=== PATIENT | female | born 1980 | race Caucasian/White ===

== ENCOUNTER 2016-10-01 02:29 | Inpatient (IN) | payer OTHER ==
[2016-10-01] VITALS (7 sets, daily range): BP systolic 95–126; BP diastolic 50–77; PULSE 86–106; RESP 16–23; Ht 165.1 cm; Wt 95.2 kg
[~2016-10-01] VITALS: Ht 165.1 cm; Wt 95.2 kg
[2016-10-01] MEDS ORDERED: morphine 4 MG/ML VIAL IV PRN (03:30)
[2016-10-01] MEDS ORDERED: ONDANSETRON 4 MG INJ IV ONE (03:30)
[2016-10-01] MEDS: DEXTROSE 5%-0.45% NACL 1,000 ML IV SCH ×3 (03:43→15:41)
[2016-10-01] MEDS ORDERED: ONDANSETRON INJ 8 MG in SOD CHLORIDE 0.9% 50 ML IV ONE (04:00)
[2016-10-01 06:32] LABS: ALBUMIN 4.1 g/dl (3.3-4.9); POTASSIUM 3.7 mmol/L (3.5-5.1)
[2016-10-01 06:34] LABS: CREATININE 0.59 mg/dl (0.44-1.00)
[2016-10-01 06:35] LABS: ALBUMIN/GLOBULIN RATIO 1.36; BILIRUBIN,INDIRECT 0.4 mg/dl (0-1.1); BILIRUBIN,TOTAL 0.4 mg/dl (0.2-1.3); CALCIUM 8.5 mg/dl (8.4-10.2); TOTAL PROTEIN 7.1 g/dl (6.1-8.1)
[2016-10-01 06:41] LABS: EOSINOPHILS % 0.2 % (0.0-7.0); HEMOGLOBIN 13.4 g/dl (12.0-16.0); LYMPHOCYTES # 0.9 10^3/ul (0.8-2.9); LYMPHOCYTES % 5.9 % (15.0-51.0); MEAN CORPUSCULAR HEMOGLOBIN 30.6 pg (29.0-33.0); MEAN CORPUSCULAR HGB CONC 35.2 g/dl (32.0-37.0); MEAN CORPUSCULAR VOLUME 86.9 fl (82.0-101.0); MEAN PLATELET VOLUME 9.2 fl (7.4-10.4); MONOCYTE # 0.9 10^3/ul (0.3-0.9); MONOCYTES % 6.5 % (0.0-11.0); NEUTROPHIL # 12.6 10^3/ul (1.6-7.5); NEUTROPHILS % 87.4 % (39.0-77.0); PLATELET COUNT 261 10^3/UL (140-440); RED BLOOD COUNT 4.37 10^6/ul (4.20-5.40); RED CELL DISTRIBUTION WIDTH 12.6 % (11.5-14.5); UNCORRECTED WBC 14.4 10^3/ul (4.8-10.8); WHITE BLOOD COUNT 14.4 10^3/ul (4.8-10.8)
[2016-10-01 06:57] LABS: CONDITION 1
--- NOTE | 2016-10-01 08:56 | HP ---
DATE OF ADMISSION: 10/01/2016 HISTORY: The patient is a 36-year-old female with a history of a herniated disk, who initially prese nted to an outside hospital with abdominal pain. An ultrasound of the abdomen was done which showed the finding of cholecystitis, and as such, the patient was to this hospital for further evaluation because of insurance reasons. Her liver enzymes and lipase at the outside hospital were within norm al limits. She denied any fever or chills, but reported some nausea. She denied any chest pain or shortness of breath. REVIEW OF SYSTEMS: A 12-point review of systems was performed and negative except as a mentioned in the HPI. PAST MEDICAL HISTORY: As per HPI. PAST SURGICAL HISTORY: Denies. SOCIAL HISTORY: Denies a history of alcohol or illicit drug use. ALLERGIES: NO KNOWN DRUG ALLERGIES. HOME MEDICATIONS: None. PHYSICAL EXAMINATION: VITAL SIGNS: Stable. GENERAL: In no acute distress, looks comfortable, answering questions appropriately, able to speak in full sentences. HEENT: No obvious head deformity. Pupils are reactive to light. Extraocular muscles are intact. CARDIOVASCULAR: Regular rate and rhythm. No extra sounds. LUNGS: Lung sounds clear. ABDOMEN: Soft. There is some tenderness to deep palpation in the right upper quadrant area, with n o guarding, no rebound tenderness, no rigidity. EXTREMITIES: No edema. NEUROLOGIC: No focal deficits. LABORATORY: WBC 14, otherwise CBC and CMP are within normal limits. IMAGING: Right upper quadrant ultrasound from the outside hospital shows cholelithiasis and gallbla dder wall thickening. IMPRESSION: 1. Cholelithiasis with cholecystitis. 2. Abdominal pain, secondary to above. PLAN: Will keep n.p.o. She will be placed on IV fluids. She will be provided pain medication and antiemetics as needed. Will place a surgery consult. Will either repeat an ultrasound or obtain a CT of her abdomen. Further workup and management per clinical course. Dictated By: MERLE REYES/YRN Conf#: [id number] DID#: [id number]
[2016-10-01] MEDS: FAMOTIDINE 20 MG INJ IV SCH ×2 (09:02→20:58)
[2016-10-01] MEDS: ONDANSETRON 4 MG INJ IV SCH ×3 (09:31→20:58)
[2016-10-01] MEDS: AMPICILLIN/SULB 3 GM/NS (PMX) 100 ML IVPB SCH ×3 (10:06→18:00)
--- NOTE | 2016-10-01 11:54 | RADRPT ---
PROCEDURE: MR Abdomen without contrast and MRCP. CLINICAL INDICATION: Right upper quadrant abdominal pain. TECHNIQUE: MRI abdomen in conjunction with MRCP was performed without the administration of intrav enous contrast. COMPARISON: None. FINDINGS: Liver demonstrates homogeneous signal without a focal lesion. There are multiple stones identified within the neck of the gallbladder with diffuse gallbladder wal l thickening. The biliary system is nondilated. There is no evidence of filling defect or choledoc holithiasis. Pancreas is homogeneous in signal without peripancreatic inflammation. Spleen and adrenal glands ar e unremarkable. Renal signal is symmetric without hydronephrosis. The visualized bowel is normal in caliber without mural thickening. Marrow signal is unremarkable. Bilateral breast prosthesis are in place. IMPRESSION: Cholelithiasis with diffuse gallbladder wall thickening, compatible with cholecystitis. No radiologic evidence of biliary dilatation, filling defect, or choledocholithiasis. RPTAT: EE .Andrade Gonsalez MD, Date Time Electronically viewed and signed by .Andrade Gonsalez MD, on 10/01/2016 11:57 .C/
[2016-10-01] MEDS: KETOROLAC 15 MG INJ IV PRN ×2 (12:09→23:06)
[2016-10-01] MEDS ORDERED: FENTAnyl 50 MCG/ML VIAL ONE (17:28)
[2016-10-01] MEDS ORDERED: ROCURONIUM 50 MG INJ ONE (17:28)
[2016-10-01] MEDS ORDERED: PROPOFOL 20 ML ONE (17:28)
[2016-10-01] MEDS ORDERED: MIDAZOLAM 1 MG/ML 2 ML INJ ONE (17:28)
[2016-10-01] MEDS ORDERED: LIDOCAINE 1% (STERILE-PAK) 30 ML INJ ONE (17:47)
[2016-10-01] MEDS ORDERED: BUPIVACAINE 0.25%/EPI (SDV) 30 ML INJ ONE (17:48)
[2016-10-01] MEDS ORDERED: METOCLOPRAMIDE 10 MG INJ ONE (18:10)
[2016-10-01] MEDS ORDERED: KETOROLAC 30 MG INJ ONE (18:10)
[2016-10-01] MEDS ORDERED: ONDANSETRON 4 MG INJ ONE (18:10)
[2016-10-01] MEDS ORDERED: DEXAMETHASONE 4 MG/ML 1 ML INJ ONE (18:10)
[2016-10-01] MEDS ORDERED: EPHEDrine SULFATE 50 MG/5 ML SYG IV PRN (18:30)
[2016-10-01] MEDS ORDERED: ACETAMINOPHEN 325 MG TAB PO PRN (18:30)
[2016-10-01] MEDS ORDERED: morphine (1 MG/ML) 10ML SYRINGE IV PRN ×3 (18:30)
[2016-10-01] MEDS ORDERED: DIPHENHYDRAMINE 50 MG INJ IV PRN (18:30)
[2016-10-01] MEDS ORDERED: ONDANSETRON 4 MG INJ IV PRN ×2 (18:30)
[2016-10-01] MEDS ORDERED: LABETALOL HCL 20MG INJ IV PRN (18:30)
[2016-10-01] MEDS ORDERED: HYDROmorphONE (0.2 MG/ML) 10ML SYG IV PRN ×2 (18:30)
[2016-10-01] MEDS ORDERED: FENTAnyl 50 MCG/ML VIAL IV PRN ×3 (18:30)
[2016-10-01] MEDS ORDERED: MEPERIDINE 25 MG INJ IV PRN (18:30)
[2016-10-01] MEDS ORDERED: [UNRECOGNIZED DRUG - OTHER] IVPB ONE (18:38)
[2016-10-01] MEDS ORDERED: AMPICILLIN IVPB ONE (18:38)
[2016-10-01] MEDS ORDERED: NS IVPB ONE (18:38)
[2016-10-01] MEDS ORDERED: NEOSTIGMINE 3 MG/3 ML SYRINGE ONE (19:30)
[2016-10-01] MEDS ORDERED: GLYCOPYRROLATE 0.4 MG INJ ONE (19:30)
[2016-10-01] MEDS: HYDROmorphONE (0.2 MG/ML) 10ML SYG IV PRN ×3 (19:57→20:34)
--- NOTE | 2016-10-01 20:39 | CONS ---
DATE OF ADMISSION: 10/01/2016 DATE OF CONSULTATION: 10/01/2016 HISTORY OF PRESENT ILLNESS: Ms. Jason is a 36-year-old female who developed acute onset of epigas tric right upper quadrant pain beginning Tuesday. She presented to the ER, [facility] and was sofy gnosed with acute cholecystitis. She was transferred here. She states had some nausea, vomiting as well. No fevers or chills. PAST MEDICAL HISTORY: Noncontributory. PAST SURGICAL HISTORY: None. MEDICATIONS: None. ALLERGIES: NO KNOWN DRUG ALLERGIES. SOCIAL HISTORY: She drinks occasionally. Denies drug use or smoking. PHYSICAL EXAMINATION: GENERAL: She is a well-nourished, obese female in some mild distress. VITAL SIGNS: He is afebrile. Vital signs stable. CHEST: Clear to auscultation bilaterally. HEART: Regular rhythm. ABDOMEN: Soft, nondistended but significant right upper quadrant tenderness. LABORATORY DATA: Revealed a white count of 14, hematocrit of 38, platelets of 261. LFTs are normal limits. Sodium 140, potassium 3.7, chloride 100, CO2 28, BUN and creatinine 6 and 0.6 and glucose 115. Her abdominal MRI reveals cholelithiasis with diffuse gallbladder wall thickening consistent w ith cholecystitis. ASSESSMENT AND PLAN: Ms. Jason is a 36-year-old female with acute cholecystitis. I discussed med ical management and an outpatient laparoscopic cholecystectomy versus proceeding with a laparoscopic , possible open cholecystectomy on this admission. The patient wishes to proceed. Therefore, we di scussed laparoscopic, possible open cholecystectomy, possible cholangiogram. All benefits, risks, a lternatives were discussed in detail. All questions were answered. The patient elected to proceed. Dictated By: LIZETH MINER/NTS Conf#: [id number] DID#: [id number]
[2016-10-01] MEDS: D5-NS + KCL 20 MEQ 1,000 ML IV SCH (20:57)
--- NOTE | 2016-10-01 21:00 | OPR ---
DATE OF OPERATION: 10/01/2016 PREOPERATIVE DIAGNOSIS: Acute cholecystitis. POSTOPERATIVE DIAGNOSIS: Acute cholecystitis. PROCEDURE: Laparoscopic cholecystectomy. SURGEON: Lizeth Corona MD INSPECTOR RAG SORTING: None. ANESTHESIOLOGIST: Bina ANESTHESIA: General endotracheal. ESTIMATED BLOOD LOSS: 100 mL. COMPLICATIONS: None. FINDINGS: Acute cholecystitis. DRAINS: A 19-Upper Sorbian round Vasu drain in the right upper quadrant. INDICATIONS: Ms. Jason is a 36-year-old female with acute appendicitis. I discussed proceeding with laparoscopic cholecystectomy on this admission. The patient wished to proceed. All benefits, risks, alternatives were discussed in detail, questions answered. The patient elected to proceed. DESCRIPTION OF PROCEDURE: Patient was brought to the operating room. Placed supine on the table. After preoperative antibiotics and SCDs were placed, the patient was intubated and the abdomen was cleaned, prepped, draped in sterile fashion. All incisions were infiltrated with 1% lidocaine with epinephrine and 0.5% Marcaine prior to incision. A 5-mm incision was made in the umbilicus. Using a 5-mm laparoscope containing trocar, the abdomen was entered under direct vision and insufflated to 15 mmHg of CO2. The following trocars were then placed under direct vision: Right lower quadrant 5-mm, right upper quadrant 5-mm, subxiphoid 5-mm. The 5-mm umbilical trocar was exchanged for an 11-mm under direct vision. The gallbladder was distended and thickened. I was able to place an aspirating needle in the gallbladder and aspirated approximately 60 mL of viscous bile. The gut was quite thick-walled and I was able to grasp the gallbladder and retract it over the liver. The omentum was then dissected from the gallbladder with electrocautery exposing Zenaida's. It was very difficult to grab Zenaida's due to the thickness of the Zenaida's and the chronicity. At this point, I identified a very-large common bile duct adherent to the Zenaida's, but I was able to dissect Zenaida's off of the common bile duct and eventually identify my cystic duct and artery. I dissected the gallbladder off the cystic plate of the liver, and thus had my critical view of safety and identified my cystic artery and duct with no intervening structures. I was then able to clip the duct twice proximally and once distally and then I divided the artery twice proximally and once distally. I then removed the gallbladder with electrocautery, placed it in an EndoCatch bag and removed it from the 12-mm trocar site. I irrigated out the right upper quadrant until effluent was clear. I visualized my gallbladder fossa; it was hemostatic. There was no evidence of bleeding or bile staining. However, due to the acuteness of the gallbladder, I placed a 19-Upper Sorbian round Vasu drain in the gallbladder fossa, which exited through the right lower quadrant 5-mm trocar site. It was sutured to the skin with a 3-0 nylon. Surgicel was placed in the bed for hemostasis. At this point, the abdomen was desufflated and all trocars removed. The fascia of the 12 mm trocar site was closed with 0 Vicryl. Skin incisions were all closed with 4-0 Monocryl, Mastisol, Steri-Strips, 2 x 2 gauze and Tegaderm was placed over the ANGEL drain exit site, as well as assistant unit forester the umbilicus. DISPOSITION: Patient tolerated the procedure well. Was extubated in the OR and transferred to the recovery room in stable condition. Dictated By: LIZETH MINER/YRN Conf#: [id number] DID#: [id number] BIANCA
[2016-10-01] MEDS: PIPER-TAZO 3.375 GM IV (PMX) 100 ML IVPB SCH (23:06)
[2016-10-02] MEDS: ONDANSETRON 4 MG INJ IV SCH ×4 (03:01→20:51)
[2016-10-02] MEDS: D5-NS + KCL 20 MEQ 1,000 ML IV SCH ×2 (04:16→15:44)
[2016-10-02] MEDS: KETOROLAC 15 MG INJ IV PRN ×2 (05:07→20:47)
[2016-10-02] MEDS: PIPER-TAZO 3.375 GM IV (PMX) 100 ML IVPB SCH ×3 (05:07→17:09)
[2016-10-02 05:47] LABS: ALBUMIN 3.8 g/dl (3.3-4.9)
[2016-10-02 05:50] LABS: ALBUMIN/GLOBULIN RATIO 1.31; BILIRUBIN,INDIRECT 0.2 mg/dl (0-1.1); BILIRUBIN,TOTAL 0.2 mg/dl (0.2-1.3); CREATININE 0.62 mg/dl (0.44-1.00); HEMATOCRIT 35.2 % (37.0-47.0); HEMOGLOBIN 12.5 g/dl (12.0-16.0); LYMPHOCYTES # 0.9 10^3/ul (0.8-2.9); LYMPHOCYTES % 6.8 % (15.0-51.0); MEAN CORPUSCULAR HEMOGLOBIN 30.7 pg (29.0-33.0); MEAN CORPUSCULAR HGB CONC 35.5 g/dl (32.0-37.0); MEAN CORPUSCULAR VOLUME 86.6 fl (82.0-101.0); MEAN PLATELET VOLUME 9.5 fl (7.4-10.4); MONOCYTE # 0.6 10^3/ul (0.3-0.9); MONOCYTES % 4.5 % (0.0-11.0); NEUTROPHIL # 11.3 10^3/ul (1.6-7.5); NEUTROPHILS % 88.7 % (39.0-77.0); PLATELET COUNT 266 10^3/UL (140-440); RED BLOOD COUNT 4.06 10^6/ul (4.20-5.40); RED CELL DISTRIBUTION WIDTH 12.7 % (11.5-14.5); TOTAL PROTEIN 6.7 g/dl (6.1-8.1); UNCORRECTED WBC 12.7 10^3/ul (4.8-10.8); WHITE BLOOD COUNT 12.7 10^3/ul (4.8-10.8)
[2016-10-02 05:51] LABS: CALCIUM 8.3 mg/dl (8.4-10.2); MAGNESIUM 2.1 mg/dl (1.7-2.5)
[2016-10-02 05:55] LABS: CONDITION 1
[2016-10-02] MEDS: METOCLOPRAMIDE 10 MG INJ IV PRN (06:06)
[2016-10-02] MEDS: morphine 2 MG INJ IV PRN ×3 (06:06→15:44)
[2016-10-02] MEDS: ENOXAPARIN 40 MG/0.4 ML SYG SC SCH (06:08)
[2016-10-02 07:37] VITALS: BP 95/52; RESP 17
[2016-10-02] MEDS: FAMOTIDINE 20 MG INJ IV SCH ×2 (08:05→20:51)
--- NOTE | 2016-10-02 09:14 | PN ---
Date/Time of Note Date/Time of Note DATE: 10/02/16 TIME: 09:12 Assessment/Plan VTE Prophylaxis VTE Prophylaxis Intervention: LMWH Lines/Catheters IV [facility] Type (from [facility] Peripheral IV Assessment/Plan Chief Complaint/Hosp Course Assessment 1. Acute cholecystitis status post laparoscopic cholecystectomy postop day 1 2. Mild leukocytosis likely postinflammatory 3. Morbid obesity Plan 1. Continue Zosyn 2. Encourage p.o. intake 3. Encourage ambulation Disposition Anticipate discharge tomorrow if remains stable Problems: Subjective 24 Hr Interval Summary Free Text/Dictation Patient stable post laparoscopic cholecystectomy Still complaining of lower abdominal pain Mild nausea Not tolerating p.o.'s yet. Exam/Review of Systems Vital Signs Vitals Vital Signs Date Time Temp Pulse Resp B/P Pulse Ox O2 Delivery O2 Flow Rate FiO2 10/02/16 07:37 98.2 65 17 95/52 98 10/01/16 19:58 Room Air Intake and Output 10/01/16 10/01/16 10/02/16 15:00 23:00 07:00 Intake Total 100 ml 1050 ml 1250 ml Output Total 105 ml Balance 100 ml 945 ml 1250 ml Exam GENERAL: Moderately obese young lady comfortable at rest no acute distress VITAL SIGNS: per chart NECK: Supple. No JVD or lymphadenopathy. CARDIAC EXAM: S1, S2. No added sounds or murmurs. CHEST: clear bilaterally, No added sounds, rales or wheezes ABDOMEN: Soft, tender right upper quadrant but no guarding or rebound. EXTREMITIES: No cyanosis, clubbing or edema. NEUROLOGIC: Generalized weakness. No focal deficits. Results Result Diagram: 10/02/16 0512 10/02/16 0512 Results 24 hrs Laboratory Tests Test 10/02/16 05:12 Alanine Aminotransferase (ALT/SGPT) 59 Albumin 3.8 Albumin/Globulin Ratio 1.31 Alkaline Phosphatase 102 Anion Gap 16 Aspartate Amino Transf (AST/SGOT) 34 Basophils # 0.0 Basophils % 0.0 Blood Urea Nitrogen 9 Calcium Level 8.3 L Carbon Dioxide Level 27 Chloride Level 104 Creatinine 0.62 Direct Bilirubin 0.00 Eosinophils # 0.0 Eosinophils % 0.0 Globulin 2.90 Glucose Level 147 Hematocrit 35.2 L Hemoglobin 12.5 Indirect Bilirubin 0.2 Lymphocytes # 0.9 Lymphocytes % 6.8 L Magnesium Level 2.1 Mean Corpuscular Hemoglobin 30.7 Mean Corpuscular Hemoglobin Concent 35.5 Mean Corpuscular Volume 86.6 Mean Platelet Volume 9.5 Monocytes # 0.6 Monocytes % 4.5 Neutrophils # 11.3 H Neutrophils % 88.7 H Nucleated Red Blood Cells # 0.0 Nucleated Red Blood Cells % 0.0 Platelet Count 266 Potassium Level 4.0 Red Blood Count 4.06 L Red Cell Distribution Width 12.7 Sodium Level 143 Total Bilirubin 0.2 Total Protein 6.7 White Blood Count 12.7 H Medications Medications Current Medications Ondansetron HCl (Zofran Inj) 4 mg Q6H IV Last administered on 10/02/16 08:05; Admin Dose 4 MG; Start 10/01/16 at 09:00 Metoclopramide HCl (Reglan) 10 mg Q6 PRN IV NAUSEA AND/OR VOMITING Last administered on 10/02/16 06:06; Admin Dose 10 MG; Start 10/01/16 at 03:30 Morphine Sulfate (morphine) 4 mg Q4H PRN IV PAIN; Start 10/01/16 at 03:30 Ketorolac Tromethamine (Toradol) 15 mg Q6H PRN IV PAIN Last administered on 05:07; Admin Dose 15 MG; Start 10/01/16 at 03:30; Stop 10/04/16 at 03:29 Famotidine 20 mg 20 mg BID IV Last administered on 10/02/16 08:05; Admin Dose 20 MG; Start 10/01/16 at 09:00 Piperacillin Sod/ Tazobactam Sod (Zosyn 3.375gm/ 100 ml (Pmx)) 100 ml @ 200 mls /hr Q6 IVPB Last administered on 10/02/16 05:07; Admin Dose 200 MLS/HR; Start 10/02/16 at 00:00 Morphine Sulfate (morphine) 2 mg Q2H PRN IV BREAKTHROUGH PAIN Last administered on 10/02/16 08:06; Admin Dose 2 MG; Start 10/01/16 at 18:30 Acetaminophen (Tylenol Tab) 650 mg Q6H PRN PO PAIN AND OR ELEVATED TEMP; Start 10/01/16 at 18:30 Acetaminophen/ Hydrocodone Bitart 1 tab 1 tab Q6H PRN PO PAIN LEVEL 6-10; Start 1/27/17 at 18:30 Potassium Chloride/Dextrose/ Sod Cl (D5-NS + KCl 20 Meq) 1,000 ml @ 100 mls/hr Q10H IV Last administered on 10/01/16 20:57; Admin Dose 100 MLS/HR; Start at 18:16 Enoxaparin Sodium (Lovenox) 40 mg DAILY@07 SC Last administered on 10/02/16 06 :08; Admin Dose 40 MG; Start 10/02/16 at 07:00 CARLOS A BLEVINS MD, [facility] Oct 02, 2016 09:14
[2016-10-02] MEDS: HYDROCODONE/APAP (5/325) TAB PO PRN ×2 (10:53→18:33)
[2016-10-02 19:33] VITALS: BP 100/55; RESP 18
--- NOTE | 2016-10-02 21:23 | PN ---
DATE: 10/02/2016 SUBJECTIVE: Mr. Jason is postop day 1 for laparoscopic cholecystectomy for acute cholecystitis. The patient is complaining of some pain. She is tolerating p.o., minimally. PHYSICAL EXAMINATION: VITAL SIGNS: She is afebrile. Vital signs stable. Her urine output is bathroom privileges. Her J P is serosanguineous 50 mL. CHEST: Clear to auscultation bilaterally. HEART: Regular rhythm. ABDOMEN: Soft, nontender with some right upper quadrant tenderness. LABORATORY DATA: Today reveal white count of 13, hematocrit of 35, and platelets of 266,000. Sodiu m 143, potassium 4, chloride 104, CO2 27, BUN and creatinine 9 and 0.6. LFTs are within normal limi ts. ASSESSMENT AND PLAN: Ms. Jason is postop day 1 from laparoscopic cholecystectomy for severe acute cholecystitis. 1. Advance diet as tolerated. 2. Hopefully, will discharge in a.m. Dictated By: LIZETH MINER/YRN Conf#: [id number] DID#: [id number]
[2016-10-03] MEDS: PIPER-TAZO 3.375 GM IV (PMX) 100 ML IVPB SCH ×3 (00:06→11:46)
[2016-10-03] MEDS: morphine 2 MG INJ IV PRN (00:09)
[2016-10-03] MEDS: METOCLOPRAMIDE 10 MG INJ IV PRN (00:09)
[2016-10-03] MEDS: ONDANSETRON 4 MG INJ IV SCH ×3 (03:04→14:23)
[2016-10-03] MEDS: ENOXAPARIN 40 MG/0.4 ML SYG SC SCH (06:04)
[2016-10-03 07:00] LABS: POTASSIUM 3.5 mmol/L (3.5-5.1)
[2016-10-03 07:02] LABS: BILIRUBIN,INDIRECT 0.1 mg/dl (0-1.1); BILIRUBIN,TOTAL 0.1 mg/dl (0.2-1.3); CREATININE 0.72 mg/dl (0.44-1.00)
[2016-10-03 07:03] LABS: BASOPHILS % 0.3 % (0.0-2.0); EOSINOPHILS # 0.2 10^3/ul (0.0-0.5); EOSINOPHILS % 2.4 % (0.0-7.0); HEMATOCRIT 27.6 % (37.0-47.0); LYMPHOCYTES # 1.8 10^3/ul (0.8-2.9); LYMPHOCYTES % 23.1 % (15.0-51.0); MEAN CORPUSCULAR HEMOGLOBIN 31.2 pg (29.0-33.0); MEAN CORPUSCULAR HGB CONC 36.1 g/dl (32.0-37.0); MEAN CORPUSCULAR VOLUME 86.2 fl (82.0-101.0); MEAN PLATELET VOLUME 9.9 fl (7.4-10.4); MONOCYTE # 0.5 10^3/ul (0.3-0.9); MONOCYTES % 6.9 % (0.0-11.0); NEUTROPHIL # 5.3 10^3/ul (1.6-7.5); NEUTROPHILS % 67.3 % (39.0-77.0); PLATELET COUNT 193 10^3/UL (140-440); RED CELL DISTRIBUTION WIDTH 12.6 % (11.5-14.5); UNCORRECTED WBC 7.9 10^3/ul (4.8-10.8); WHITE BLOOD COUNT 7.9 10^3/ul (4.8-10.8)
[2016-10-03 07:03] LABS: ALBUMIN/GLOBULIN RATIO 1.07; CALCIUM 7.9 mg/dl (8.4-10.2); TOTAL PROTEIN 5.8 g/dl (6.1-8.1)
[2016-10-03 07:05] LABS: CONDITION 1
[2016-10-03 08:00] VITALS: BP 108/58; RESP 18
[2016-10-03] MEDS: FAMOTIDINE 20 MG INJ IV SCH (08:19)
[2016-10-03] MEDS: HYDROCODONE/APAP (5/325) TAB PO PRN ×2 (08:19→14:23)
[2016-10-03] MEDS: D5-NS + KCL 20 MEQ 1,000 ML IV SCH (08:20)
--- NOTE | 2016-10-03 13:31 | PN ---
Date/Time of Note Date/Time of Note DATE: 10/03/16 TIME: 13:22 Assessment/Plan VTE Prophylaxis VTE Prophylaxis Intervention: ambulation Lines/Catheters IV Catheter Type (from Nrs): Peripheral IV Assessment/Plan Chief Complaint/Hosp Course Assessment 1. Acute cholecystitis status post laparoscopic cholecystectomy postop day 2 2. Improved leucocytes. 3. Morbid obesity Plan 1. PO antibiotics 2. Encourage p.o. intake discharge if cleared by surgery PO keflex, f/u Dr Corona. Disposition Anticipate discharge tomorrow if remains stable Problems: Subjective 24 Hr Interval Summary Free Text/Dictation Comfortable Less pain Tolerating po diet. Exam/Review of Systems Vital Signs Vitals Vital Signs Date Time Temp Pulse Resp B/P Pulse Ox O2 Delivery O2 Flow Rate FiO2 10/03/16 08:00 98.6 74 18 108/58 100 10/01/16 19:58 Room Air Intake and Output 10/02/16 10/02/16 10/03/16 15:00 23:00 07:00 Intake Total 100 ml 1890 ml 1600 ml Output Total 30 ml Balance 100 ml 1890 ml 1570 ml Exam GENERAL: Moderately obese young lady comfortable at rest no acute distress VITAL SIGNS: per chart NECK: Supple. No JVD or lymphadenopathy. CARDIAC EXAM: S1, S2. No added sounds or murmurs. CHEST: clear bilaterally, No added sounds, rales or wheezes ABDOMEN: Soft, tender right upper quadrant but no guarding or rebound. ANGEL drain in place. EXTREMITIES: No cyanosis, clubbing or edema. NEUROLOGIC: Generalized weakness. No focal deficits. Results Result Diagram: 10/03/16 0523 10/03/16 0455 Results 24 hrs Laboratory Tests Test 10/03/16 04:55 10/03/16 05:23 Alanine Aminotransferase (ALT/SGPT) 41 Albumin 3.0 L Albumin/Globulin Ratio 1.07 Alkaline Phosphatase 74 Anion Gap 12 Aspartate Amino Transf (AST/SGOT) 19 Blood Urea Nitrogen 11 Calcium Level 7.9 L Carbon Dioxide Level 28 Chloride Level 108 Creatinine 0.72 Direct Bilirubin 0.00 Globulin 2.80 Glucose Level 106 # Indirect Bilirubin 0.1 Potassium Level 3.5 Sodium Level 144 Total Bilirubin 0.1 L Total Protein 5.8 L Basophils # 0.0 Basophils % 0.3 Eosinophils # 0.2 Eosinophils % 2.4 Hematocrit 27.6 #L Hemoglobin 10.0 L Lymphocytes # 1.8 Lymphocytes % 23.1 Mean Corpuscular Hemoglobin 31.2 Mean Corpuscular Hemoglobin Concent 36.1 Mean Corpuscular Volume 86.2 Mean Platelet Volume 9.9 Monocytes # 0.5 Monocytes % 6.9 Neutrophils # 5.3 Neutrophils % 67.3 Nucleated Red Blood Cells # 0.0 Nucleated Red Blood Cells % 0.0 Platelet Count 193 # Red Blood Count 3.20 #L Red Cell Distribution Width 12.6 White Blood Count 7.9 # Medications Medications Current Medications Ondansetron HCl (Zofran Inj) 4 mg Q6H IV Last administered on 10/03/16 08:19; Admin Dose 4 MG; Start 10/01/16 at 09:00 Metoclopramide HCl (Reglan) 10 mg Q6 PRN IV NAUSEA AND/OR VOMITING Last administered on 10/03/16 00:09; Admin Dose 10 MG; Start 10/01/16 at 03:30 Morphine Sulfate (morphine) 4 mg Q4H PRN IV PAIN; Start 10/01/16 at 03:30 Ketorolac Tromethamine (Toradol) 15 mg Q6H PRN IV PAIN Last administered on 20:47; Admin Dose 15 MG; Start 10/01/16 at 03:30; Stop 10/04/16 at 03:29 Famotidine 20 mg 20 mg BID IV Last administered on 10/03/16 08:19; Admin Dose 20 MG; Start 10/01/16 at 09:00 Piperacillin Sod/ Tazobactam Sod (Zosyn 3.375gm/ 100 ml (Pmx)) 100 ml @ 200 mls /hr Q6 IVPB Last administered on 10/03/16 11:46; Admin Dose 200 MLS/HR; Start 10/02/16 at 00:00 Morphine Sulfate (morphine) 2 mg Q2H PRN IV BREAKTHROUGH PAIN Last administered on 10/03/16 00:09; Admin Dose 2 MG; Start 10/01/16 at 18:30 Acetaminophen (Tylenol Tab) 650 mg Q6H PRN PO PAIN AND OR ELEVATED TEMP; Start 10/01/16 at 18:30 Acetaminophen/ Hydrocodone Bitart 1 tab 1 tab Q6H PRN PO PAIN LEVEL 6-10 Last administered on 10/03/16 08:19; Admin Dose 1 TAB; Start 10/01/16 at 18:30 Potassium Chloride/Dextrose/ Sod Cl (D5-NS + KCl 20 Meq) 1,000 ml @ 50 mls/hr Q20H IV Last administered on 10/02/16 15:44; Admin Dose 100 MLS/HR; Start at 18:16 Enoxaparin Sodium (Lovenox) 40 mg DAILY@07 SC Last administered on 10/03/16 06 :04; Admin Dose 40 MG; Start 10/02/16 at 07:00 CARLOS A BLEVINS MD, [facility] Oct 03, 2016 13:31
--- NOTE | 2016-10-03 13:34 | PDOCDIS ---
Discharge Instructions DIAGNOSIS Discharge Diagnosis: Acute cholecytitis post laprascopic cholecystectomy. CONDITION Patient Condition: Good HOME CARE INSTRUCTIONS: Diet Instructions: RegularSpecial Diet: carb controlled ACTIVITY: Activity Restrictions: No Restrictions Slowly Increase Activity Bathing Restrictions: Sponge Bath FOLLOW UP/APPOINTMENTS Appointments Dr Corona general surgery Primary care physician. SCHOOL/WORK RELEASE May return to School/Work on: Oct 11, 2016 May return to School/Work with: No Restrictions CAR[facility] A BLEVINS MD, [facility] Oct 03, 2016 13:34
--- NOTE | 2016-10-03 23:28 | DS ---
DATE OF ADMISSION: 10/01/2016 DATE OF DISCHARGE: 10/03/2016 DISCHARGE DIAGNOSIS: Acute cholecystitis. DESCRIPTION: This is a pleasant 36-year-old lady, presented with acute abdominal pain of several da ys, found to have acute cholecystitis on admission, was evaluated by Dr. Richar Corona and taken to [facility] on 10/01/2016, underwent laparoscopic cholecystectomy under general anesthetic. The patient t olerated procedure well without any complications, was safely extubated the following day. Diet was advanced, and she continued to improve up until date of discharge, which was 10/03/2016. DISCHARGE DIAGNOSIS: Acute cholecystitis, status post laparoscopic cholecystectomy. DISCHARGE DIET: Low-carb diet, low fat diet. DISCHARGE MEDICATIONS: Include: 1. Keflex 500 mg t.i.d. x7 days. 2. Colace 1 tablet p.r.n. as needed. 3. Percocet p.r.n. DISCHARGE FOLLOWUP: 1. Dr. Richar Corona. 2. Primary care physician. RESTRICTIONS: The patient is stable for commencement of work on 10/11/2016. Should advance her act ivities as tolerated. Dictated By: CARLOS A GARCIA/NTS Conf#: [id number] DID#: [id number]
== END 2016-10-03 18:42 | disposition home or self-care (01) | DRG 419 ==
LOC: PP2 02:29
PROVIDERS: ADMIT Internal Medicine; ATTEND Internal Medicine
PROC: 0FT44ZZ Resection of Gallbladder, Percutaneous Endoscopic Approach (ICD-10-PCS; principal; 2016-10-01 18:00)
DX: K81.0 Acute cholecystitis (principal); E66.01 Morbid (severe) obesity due to excess calories; Z68.34 Body mass index [BMI] 34.0-34.9, adult; D72.829 Elevated white blood cell count, unspecified
CPT/HCPCS: 74181; 80053; 83690; 83735; 85025; 88304; J0295; J1100; J1170; J1650; J1885; J2250; J2270; J2405; J2543; J2710; J2765; J3010; J3480; J7042